=== PATIENT | male | born 1950 | race Caucasian/White ===

== ENCOUNTER 2021-02-20 13:30 | Outpatient (CLI) | payer MEDICARE | END 2021-02-20 13:31 | disposition home or self-care (01) | LOC: NAV RAD 13:30 | PROVIDERS: ATTEND Neurological Surgery | DX: S22.009A Unspecified fracture of unspecified thoracic vertebra, initial encounter for closed fracture (principal); S32.009A Unspecified fracture of unspecified lumbar vertebra, initial encounter for closed fracture | CPT/HCPCS: 72072; 72100 ==

== ENCOUNTER 2021-03-26 10:12 | Outpatient (CLI) | payer MEDICARE | END 2021-03-26 10:13 | disposition home or self-care (01) | LOC: NAV RAD 10:12 | PROVIDERS: ATTEND Neurological Surgery | DX: S22.079A Unspecified fracture of T9-T10 vertebra, initial encounter for closed fracture (principal); S32.029A Unspecified fracture of second lumbar vertebra, initial encounter for closed fracture; S32.039A Unspecified fracture of third lumbar vertebra, initial encounter for closed fracture | CPT/HCPCS: 72072; 72100 ==

== ENCOUNTER 2022-03-21 10:18 | Outpatient (CLI) | payer MEDICARE ==
[2022-03-21 11:24] LABS: ALT (SGPT) 14 U/L (8-55); AST (SGOT) 19 U/L (5-34); Alkaline Phosphatase 64 U/L (40-110); Anion Gap 15 mmol/L (10-20); BUN (Urea Nitrogen) 22 mg/dL (8.4-25.7); Bilirubin, Direct 0.2 mg/dL (0.1-0.3); Bilirubin, Total 0.4 mg/dL (0.2-1.2); Calc. Creatinine Clearance 0 mL/min (70-130); Calcium 9.3 mg/dL (7.8-10.44); Carbon Dioxide 28 mmol/L (23-31); Chloride 103 mmol/L (98-107); Glucose 91 mg/dL (83-110); Potassium 4.1 mmol/L (3.5-5.1); Protein, Total 6.3 g/dL (5.8-8.1); Sodium 142 mmol/L (136-145)
[2022-03-21 12:19] LABS: Follow-up Chemistry Comp? YES; Follow-up Result - Chemistry REPORT FAXED
[2022-03-21 17:20] LABS: Hemoglobin A1c 5.6 % (4.0-6.0)
[2022-03-21 18:33] LABS: Cardiac Risk 3.8 (Less than 4.5); Cholesterol 135 mg/dl (< 200 Desired); HDL Cholesterol 36 mg/dL (>60 Neg Risk); LDL Cholesterol, Calculated 75 mg/dL; Triglycerides 120 mg/dL (Less than 150)
== END 2022-03-21 10:19 | disposition home or self-care (01) ==
LOC: NAV LABSP 10:18
PROVIDERS: ATTEND Internal Medicine Cardiovascular Disease
DX: E78.5 Hyperlipidemia, unspecified (principal); E11.9 Type 2 diabetes mellitus without complications; I10 Essential (primary) hypertension
CPT/HCPCS: 36415; 80048; 80061; 80076; 83036

== ENCOUNTER 2022-12-10 12:43 | Outpatient (CLI) | payer MEDICARE | END 2022-12-10 12:44 | disposition home or self-care (01) | LOC: NAV RAD 12:43 | PROVIDERS: ATTEND Internal Medicine | DX: J44.9 Chronic obstructive pulmonary disease, unspecified (principal); R05.9 Cough, unspecified | CPT/HCPCS: 71046 ==